=== PATIENT | female | born 1975 | race Two or more races ===

== ENCOUNTER 2024-01-09 10:04 | Emergency (ER) | payer OTHER ==
[~2024-01-09] VITALS: Ht 154.9 cm; Wt 83.9 kg
[~2024-01-09 10:04] MED LIST: SINGULAIR10 MG; ULTRAM50 MG
[2024-01-09] MEDS ORDERED: MEPERIDINE HCL/PF 50 MG/ML VIAL IM STA (10:40)
[2024-01-09] MEDS ORDERED: PROMETHAZINE HCL 50 MG/ML AMPUL IM STA (11:11)
[2024-01-09 11:17] LABS: HEMATOCRIT 45.2 % (36.0-45.00); HEMOGLOBIN 15.4 g/dL (12.0-15.00); MEAN CELL VOLUME 87.8 fL (80.00-100.00); MEAN CORPUSCULAR HEMOGLOBIN 29.9 pg (27.00-32.0); MEAN CORPUSCULAR HGB CONC 34.1 g/dl (32.0-36.0); PLATELET COUNT 289 K/uL (150-450); RED BLOOD COUNT 5.15 M/uL (4.00-6.00); RED CELL DISTRIBUTION WIDTH 13.1 % (11.5-14.5)
[2024-01-09 11:50] LABS: PH,URINE 6.5 (5.0-8.0); URINE APPEARANCE Clear; URINE BILIRRUBIN Negative (NEGATIVE); URINE BLOOD Negative; URINE COLOR Yellow; URINE GLUCOSE Negative (NEGATIVE); URINE LEUKOCYTE Small; URINE NITRATE Negative; URINE PROTEIN Trace (NEGATIVE)
[2024-01-09 11:54] LABS: URINE BACTERIA 215.4 uL (0.0-1933); URINE EPITHELIAL CELLS 31.5 uL (0.0-38.8); URINE RBC 43.8 uL (0.0-20.8); URINE WBC 15.6 uL (0.0-23.2)
[2024-01-09 13:01] LABS: CALCIUM 9.4 mg/dL (8.5-10.1); CREATININE SERUM 1.11 mg/dL (0.55-1.02); GFR 52.92; POTASSIUM 4.03 mEq/L (3.5-5.1)
== END 2024-01-09 14:00 | disposition home or self-care (01) ==
LOC: ER 10:05
PROVIDERS: General Practice
DX: N20.1 Calculus of ureter (principal); R10.2 Pelvic and perineal pain; I10 Essential (primary) hypertension